=== PATIENT | male | born 1955 | race American Indian/Alaskan Native ===

== ENCOUNTER 2019-04-22 04:37 | Emergency (ER) | payer MEDICAID ==
[2019-04-22 05:33] LABS: Basophils % (Auto) 0.2 % (0.0-1.8); Eosinophils # (Auto) 0.1 K/mm3 (0.0-0.4); Eosinophils % (Auto) 1.6 % (0.0-4.3); Hematocrit 31.4 % (35.5-45.6); Hemoglobin 10.3 gm/dl (11.8-15.2); Lymphocytes # (Auto) 0.6 K/mm3 (1.2-5.4); Lymphocytes % (Auto) 9.3 % (13.4-35.0); Mean Corpuscular HGB Conc 33 % (32-34); Mean Corpuscular Volume 74 fl (84-94); Monocytes # (Auto) 0.9 K/mm3 (0.0-0.8); Monocytes % (Auto) 13.4 % (0.0-7.3); Platelet Count 278 K/mm3 (140-440); Red Blood Count 4.26 M/mm3 (3.65-5.03); Red Cell Distribution Width 15.7 % (13.2-15.2)
[2019-04-22 05:44] LABS: INR 1.01 (0.87-1.13)
[2019-04-22 05:58] LABS: Alanine Aminotransferase 19 units/L (7-56); BUN/Creatinine Ratio 11; Blood Urea Nitrogen 12 mg/dL (9-20); Calcium 8.8 mg/dL (8.4-10.2); Hemolysis Index 0
[2019-04-22 06:00] LABS: Bilirubin,Direct < 0.2 mg/dL (0-0.2)
[2019-04-22] MEDS ORDERED: ONDANSETRON 4 MG/2 ML INJ IV ONE (06:11)
[2019-04-22] MEDS ORDERED: SODIUM CHLORIDE 0.9% 1000 ML 1,000 ML IV ONE (06:16)
[2019-04-22 06:21] LABS: Bilirubin,Urine NEG (Negative); Blood,Urine NEG (Negative); Color,Urine Colorless (Yellow); Protein,Urine <15 mg/dL mg/dL (Negative); RBC,Urine < 1.0 /HPF (0.0-6.0); Urobilinogen,Urine < 2.0 mg/dL (<2.0); WBC,Urine < 1.0 /HPF (0.0-6.0)
--- NOTE | 2019-04-22 06:33 | Emergency Department Report ---
HPI - General Chief Complaint: Abdominal Pain Time Seen by Provider: 04/22/19 06:00 - HPI HPI: 64-year-old -[place] male presents to the emergency department with complaint of a three-day history of periumbilical abdominal pain, nausea, vomiting and diarrhea. He has a history of COPD, acid reflux, hypertension and a history of stomach surgery to remove ulcers that he says were not cancerous. He has taken his normal medications but has not taken anything else for his symptoms prior to arrival. He has a primary care physician but cannot currently remember their name. No recent travel or sick contacts at home. ED Past Medical Hx - Past Medical History Previous Medical History?: Yes Hx Hypertension: Yes Hx GERD: Yes Hx COPD: Yes - Surgical History Past Surgical History?: Yes Additional Surgical History: stomach surgery - Social History Smoking Status: Current Every Day Smoker Substance Use Type: None - Medications Home Medications: Home Medications Medication Instructions Recorded Confirmed Last Taken Type Ondansetron [Zofran Odt] 4 mg PO Q8HR PRN #15 tab.rapdis 04/22/19 Unknown Rx ED Review of Systems ROS: Stated complaint: ABD PAIN/EMESIS/DIARRHEA Other details as noted in HPI Comment: All other systems reviewed and negative Constitutional: denies: chills, fever Eyes: denies: eye pain, vision change ENT: denies: ear pain, throat pain Respiratory: denies: cough, shortness of breath Cardiovascular: denies: chest pain, palpitations Gastrointestinal: abdominal pain, nausea, vomiting, diarrhea Genitourinary: denies: dysuria, discharge Musculoskeletal: denies: back pain, arthralgia Skin: denies: rash, lesions Neurological: denies: headache, weakness Physical Exam - Physical Exam Vital Signs: Vital Signs 04/22/19 04/22/19 04:50 04:53 Temperature 97.7 F Pulse Rate 64 Respiratory 17 Rate Blood Pressure 127/74 Blood Pressure 127/74 [Left] O2 Sat by Pulse 99 84 Oximetry Physical Exam: GENERAL: The patient is well-developed well-nourished. HEENT: Normocephalic. Atraumatic. Patient has moist mucous membranes. EYES: Extraocular motions are intact. NECK: Supple. Trachea is midline. CHEST/LUNGS: Clear to auscultation. There is no respiratory distress noted. HEART/CARDIOVASCULAR: Regular. There is no tachycardia. There is no murmur. ABDOMEN: Abdomen is soft. Mild reproducible periumbilical tenderness to palpation. No guarding. Patient has normal bowel sounds. There is no abdominal distention. SKIN:Skin is warm and dry. . NEURO: The patient is awake, alert, and oriented. The patient is cooperative. The patient has no focal neurologic deficits. Normal speech. MUSCULOSKELETAL: There is no tenderness or deformity. There is no evidence of acute injury. ED Course Vital Signs 04/22/19 04/22/19 04:50 04:53 Temperature 97.7 F Pulse Rate 64 Respiratory 17 Rate Blood Pressure 127/74 Blood Pressure 127/74 [Left] O2 Sat by Pulse 99 84 Oximetry ED Medical Decision Making - Lab Data Result diagrams: 04/22/19 05:07 04/22/19 05:07 - Radiology Data Radiology results: report reviewed CT ABDOMEN AND PELVIS WITH CONTRAST HISTORY: Abd pain COMPARISON: None TECHNIQUE: Routine abdominal and pelvic CT exam performed following intravenous contrast administration. Note: All CT scans at this location are performed using CT dose reduction employed for ALARA by means of automated exposure control. CONTRAST: 100 mL Omnipaque 300. Consent was obtained prior to the administration of contrast. FINDINGS: CT ABDOMEN: Lung Bases: Clear. Liver: Borderline enlarged with normal overall density. No liver mass. Biliary: Normal gallbladder. Mild prominence of the intrahepatic bile ducts. Spleen: No significant abnormality. Unenlarged. Pancreas: Prominent prominent pancreatic duct. The pancreas is otherwise unremarkable. Adrenals: No significant abnormality. Kidneys: No significant abnormality. Renal collecting systems and ureters are nondilated. Left benign renal cysts with the largest in the lower pole measuring 2.9 cm. Lymphatics: No lymphadenopathy. Vasculature: No significant abnormality. Bowel/Peritoneum: No significant abnormality. No obstruction. No free air. No free fluid. No appendix identified. However, a normal anastomosis of the proximal ascending colon. CT PELVIC: : No significant abnormality. Osseous Structures: No significant abnormality. Additional Findings: None IMPRESSION: 1. Borderline large liver. 2. Mild prominence of the bile ducts and proximal pancreatic duct. 3. Postoperative changes in the right colon. - Medical Decision Making This patient presents with a 3 day history of some nausea vomiting and some periumbilical abdominal pain. His labs have been unremarkable including CBC, metabolic panel and urinalysis. CT scan of the abdomen and pelvis with IV contrast shows some borderline enlarged liver, some prominence of the bile ducts and proximal pancreatic duct without any solid organ changes or obvious acute process found. His vital signs stable throughout his ED course. There has been no further nausea or vomiting while in the emergency department and in fact the patient is asking for something to eat and drink. He appears safe for discharge home at this time and has been given a referral for gastroenterology. He will return to the ER with any worsening of his symptoms or any acute distress. - Differential Diagnosis bowel obstruction, colitis, diverticulitis, constipation Critical Care Time: No Critical care attestation.: If time is entered above; I have spent that time in minutes in the direct care of this critically ill patient, excluding procedure time. ED Disposition Clinical Impression: Abdominal pain Qualifiers: Abdominal location: periumbilical Qualified Code(s): R10.33 - Periumbilical pain Nausea & vomiting Qualifiers: Vomiting type: unspecified Vomiting Intractability: non-intractable Qualified Code(s): R11.2 - Nausea with vomiting, unspecified Disposition: TO HOME OR SELFCARE Is pt being admited?: No Condition: Stable Instructions: Acute Nausea and Vomiting (ED), Abdominal Pain (ED) Additional Instructions: Please follow up with your primary care physician in the next few days. I have also given you a referral for a local gastroenterology group to follow up regarding your abdominal pains. Return to the emergency Department with any worsening of your symptoms or any acute distress. Prescriptions: Ondansetron [Zofran Odt] 4 mg PO Q8HR PRN #15 tab.rapdis PRN Reason: Nausea Referrals: [facility] [Provider Group] - 2-3 Days PCP, Your [Other] - 2-3 Days Time of Disposition: 09:17
--- NOTE | 2019-04-22 09:11 | Cat Scan Report ---
CT ABDOMEN AND PELVIS WITH CONTRAST HISTORY: Abd pain COMPARISON: None TECHNIQUE: Routine abdominal and pelvic CT exam performed following intravenous contrast administrat ion. Note: All CT scans at this location are performed using CT dose reduction employed for ALARA by means of automated exposure control. CONTRAST: 100 mL Omnipaque 300. Consent was obtained prior to the administration of contrast. FINDINGS: CT ABDOMEN: Lung Bases: Clear. Liver: Borderline enlarged with normal overall density. No liver mass. Biliary: Normal gallbladder. Mild prominence of the intrahepatic bile ducts. Spleen: No significant a bnormality. Unenlarged. Pancreas: Prominent prominent pancreatic duct. The pancreas is otherwise unremarkable. Adrenals: No significant abnormality. Kidneys: No significant abnormality. Renal collecting systems and ureters are nondilated. Left benign renal cysts with the largest in the lower pole measuring 2.9 cm. Lymphatics: No lymphadenopathy. Vasculature: No significant abnormality. Bowel/Peritoneum: No significant abnormality. No obstruction. No free air. No free fluid. No appendix identified. However, a normal anastomosis of the proximal ascending colon. CT PELVIC: : No significant abnormality. Osseous Structures: No significant abnormality. Additional Findings: None IMPRESSION: 1. Borderline large liver. 2. Mild prominence of the bile ducts and proximal pancreatic duct. 3. Postoperative changes in the right colon. Signer Name: Will Aldridge MD Signed: 04/22/2019 9:07 AM Workstation Name: [id number]
[2019-04-22 09:49] VITALS: BP 120/76
== END 2019-04-22 09:00 | disposition home or self-care (01) ==
LOC: ED 04:37
DX: R10.33 Periumbilical pain (principal); R11.2 Nausea with vomiting, unspecified; I10 Essential (primary) hypertension; K21.9 Gastro-esophageal reflux disease without esophagitis; J44.9 Chronic obstructive pulmonary disease, unspecified; F17.200 Nicotine dependence, unspecified, uncomplicated; Z98.890 Other specified postprocedural states; Z79.899 Other long term (current) drug therapy
CPT/HCPCS: 36415; 74177; 80048; 80076; 81001; 83690; 85025; 85610; 96361; 96374; 99284; J2405; J7030; Q9967

== ENCOUNTER 2019-07-18 22:55 | Observation (INO) | payer MEDICAID ==
[2019-07-18] MEDS ORDERED: ALBUTEROL 2.5 MG/3 ML NEBU IH ONE (23:04)
[2019-07-18] MEDS ORDERED: methylPREDNISolone Sod Succinate 125 MG/2 ML INJ IV ONE (23:04)
[2019-07-18] MEDS ORDERED: IPRATROPIUM 0.02% NEBU 2.5 ML IH ONE (23:04)
[2019-07-18] MEDS ORDERED: MAGNESIUM SULFATE 2 GM/50 ML BAG IV ONE (23:04)
--- NOTE | 2019-07-18 23:12 | Emergency Department Report ---
HPI - General Time Seen by Provider: 07/18/19 22:58 - HPI HPI: Room 8 The patient is a 64-year-old male present with a chief complaint of shortness of breath. The patient states for the past 2 to 3 days he has had a cough productive of young sputum. Patient admits to rhinorrhea but denies fever. The patient states since yesterday he has had worsening shortness of breath. P atient states over the past 4 hours he developed wheezing with his shortness of breath. Patient states it feels like an asthma attack. Patient denies any known sick contacts. Patient complains of chest pain stating he feels as though someone is standing on his chest ED Past Medical Hx - Past Medical History Hx Hypertension: Yes Hx GERD: Yes Hx COPD: Yes - Surgical History Additional Surgical History: Colonic polyp removal - Family History Family history: no significant - Social History Smoking Status: Current Every Day Smoker (1/3 pack/day) Substance Use Type: None, Cocaine (Crack cocaine use) - Medications Home Medications: Home Medications Medication Instructions Recorded Confirmed Last Taken Type Ondansetron [Zofran Odt] 4 mg PO Q8HR PRN #15 tab.rapdis 04/22/19 Unknown Rx ED Review of Systems ROS: Stated complaint: ABDIEL Other details as noted in HPI Constitutional: denies: fever Eyes: denies: eye pain ENT: denies: throat pain Respiratory: cough, shortness of breath Cardiovascular: denies: chest pain Endocrine: no symptoms reported Gastrointestinal: denies: abdominal pain Genitourinary: denies: dysuria Musculoskeletal: denies: back pain Neurological: denies: headache Physical Exam - Physical Exam Physical Exam: GENERAL: The patient is well-developed well-nourished male sitting on stretcher appearing to have slightly increased work of breathing HEENT: Normocephalic. Atraumatic. Extraocular motions are intact. Patient has moist mucous membranes. NECK: Supple. Trachea midline CHEST/LUNGS: Diffuse wheezing. Increased work of breathing HEART/CARDIOVASCULAR: Regular. There is no tachycardia. There is no gallop rub or murmur. ABDOMEN: Abdomen is soft, nontender. Patient has normal bowel sounds. There is no abdominal distention. SKIN: There is no rash. There is no edema. There is no diaphoresis. NEURO: The patient is awake, alert, and oriented. The patient is cooperative. The patient has normal speech MUSCULOSKELETAL: There is no evidence of acute injury. ED Course - Consultations Consultation #1: 07/19/19 00:14 EKG sent to and discussed with Dr. Butler- "the EKG is fine." no STEMI ED Medical Decision Making - Lab Data Result diagrams: 07/19/19 00:14 07/19/19 00:14 Laboratory Tests 07/18/19 07/19/19 07/19/19 23:40 00:14 00:14 WBC 4.8 RBC 4.23 Hgb 9.9 L Hct 31.3 L MCV 74 L MCH 24 L MCHC 32 RDW 15.9 H Plt Count 289 Lymph % (Auto) Barrel Builder [place] % (Auto) Barrel Builder Eos % (Auto) Barrel Builder Baso % (Auto) Barrel Builder Lymph # Barrel Builder [place] # Barrel Builder Eos # Barrel Builder Baso # Barrel Builder Seg Neutrophils % Barrel Builder Seg Neutrophils # Barrel Builder Sodium 130 L Potassium 4.6 Chloride 98.2 Carbon Dioxide 22 Anion Gap 14 BUN 10 Creatinine 0.9 Estimated GFR > 60 BUN/Creatinine Ratio 11 Glucose 81 Calcium 9.0 Total Creatine Kinase 445 H CK-MB (CK-2) 8.5 H CK-MB (CK-2) Rel Index 1.9 Troponin T < 0.010 NT-Pro-B Natriuret Pep 503.5 Influenza A (Rapid) Negative Influenza B (Rapid) Negative - EKG Data -: EKG Interpreted by Me EKG shows normal: sinus rhythm Rate: normal - EKG Data When compared to previous EKG there are: previous EKG unavailable Interpretation: nonspecific ST-T wave edwina - Radiology Data Radiology results: report reviewed (Chest x-ray), image reviewed (Chest x-ray) interpreted by me: Chest x-ray-no focal infiltrates, no pneumothorax [facility] [address] [place] [address] XRay Report Signed Patient: LIDA VILLALBA MR#: [id number] : 1955 Acct:[id number] Age/Sex: 64 / M ADM Date: 07/18/19 Loc: ED Attending Dr: Ordering Physician: DELMAR QUESADA MD Date of Service: 07/18/19 Procedure(s): XR chest 1V ap Accession Number(s): [id number] cc: DELMAR QUESADA MD Fluoro Time In Minutes: CHEST 1 VIEW 11:48 PM INDICATION / CLINICAL INFORMATION: MAIN: Shortness of breath; hx asthma, copd. COMPARISON: None available. FINDINGS: SUPPORT DEVICES: None. HEART / MEDIASTINUM: No significant abnormality. LUNGS / PLEURA: Lungs are slightly hyperinflated. Biapical subpleural scarring. No acute airspace disease. No pneumothorax. ADDITIONAL FINDINGS: No significant additional findings. IMPRESSION: 1. COPD but no acute findings. Signer Name: Kamryn Hopkins MD Signed: 07/19/2019 12:25 AM Workstation Name: [id number] Transcribed By: DT Dictated By: Giacomo Hopkins MD Electronically Authenticated By: Giacomo Hopkins MD Signed Date/Time: 07/19/1924 DD/ TD/TT: - Differential Diagnosis COPD exacerbation, pneumonia, bronchitis Critical care attestation.: If time is entered above; I have spent that time in minutes in the direct care of this critically ill patient, excluding procedure time. ED Disposition Clinical Impression: Shortness of breath, Chest pain, COPD exacerbation, Cocaine abuse Disposition: 09 OP ADMIT IP TO THIS HOSP Is pt being admited?: Yes Does the pt Need Aspirin: Yes Condition: Fair Instructions: Chest Pain (ED), Chronic Obstructive Pulmonary Disease (ED) Referrals: CHRISTIANA GRANDE MD [Primary Care Provider] - 3-5 Days Time of Disposition: 01:43 (Hospitalist paged (Dr. La Singh))
--- NOTE | 2019-07-19 00:30 | XRay Report ---
CHEST 1 VIEW 11:48 PM INDICATION / CLINICAL INFORMATION: MAIN: Shortness of breath; hx asthma, copd. COMPARISON: None available. FINDINGS: SUPPORT DEVICES: None. HEART / MEDIASTINUM: No significant abnormality. LUNGS / PLEURA: Lungs are slightly hyperinflated. Biapical subpleural scarring. No acute airspace dis ease. No pneumothorax. ADDITIONAL FINDINGS: No significant additional findings. IMPRESSION: 1. COPD but no acute findings. Signer Name: Kamryn Hopkins MD Signed: 07/19/2019 12:25 AM Workstation Name: [id number]
[2019-07-19] MEDS ORDERED: fentaNYL 100 MCG/2 ML INJ IV ONE (00:33)
[2019-07-19] MEDS ORDERED: ONDANSETRON 4 MG/2 ML INJ IV ONE (00:33)
[2019-07-19] MEDS ORDERED: NITROGLYCERIN 2% OINT 1 GM TP ONE (00:33)
[2019-07-19] MEDS ORDERED: ASPIRIN 325 MG TAB PO ONE (00:34)
[2019-07-19 01:12] LABS: Hematocrit 31.3 % (35.5-45.6); Hemoglobin 9.9 gm/dl (11.8-15.2); Mean Corpuscular HGB Conc 32 % (32-34); Mean Corpuscular Volume 74 fl (84-94); Platelet Count 289 K/mm3 (140-440); Red Blood Count 4.23 M/mm3 (3.65-5.03); Red Cell Distribution Width 15.9 % (13.2-15.2)
[2019-07-19 01:13] LABS: Creatine Kinase MB 8.5 ng/mL (0.0-4.0)
[2019-07-19 01:17] LABS: BUN/Creatinine Ratio 11; Blood Urea Nitrogen 10 mg/dL (9-20); Hemolysis Index 114
[2019-07-19] MEDS ORDERED: LORazepam 2 MG/ML VIAL IV ONE (01:30)
[2019-07-19] MEDS ORDERED: ACETAMINOPHEN 325 MG TAB PO PRN ×2 (03:05→03:09)
[2019-07-19] MEDS ORDERED: ONDANSETRON 4 MG/2 ML INJ IV PRN ×2 (03:05→03:09)
[2019-07-19] MEDS ORDERED: oxyCODONE /ACETAMINOPHEN 5-325MG TAB PO PRN (03:09)
--- NOTE | 2019-07-19 03:16 | History and Physical Report ---
History of Present Illness History of present illness: 64-year-old man with a history of COPD, asthma, hypertension, substance abuse comes emergency room with complaints of shortness of breath over the last 4 days. Patient states that he ran out of his inhalers at home, symptoms worsened today so he comes emergency room for evaluation. Also complaining of a cough productive of green phlegm. He currently had chest pain which she states feels like someone standing on his chest, intermittent every 30 to 40 minutes, intensity 5/10, no radiation, cannot identify exacerbating factor. His last use of crack cocaine was on Friday. Patient will be admitted for COPD exacerbation, chest pain Review Of Systems: Constitutional: no weight loss, fever, chills Ears, eyes, nose, mouth and throat: no nasal congestion, no nasal discharge, no sinus pressure, blurry vision, diplopia Neck: No neck pain or rigidity. Cardiovascular: No palpitations, chest pain Respiratory: + shortness of breath, cough Gastrointestinal: No hematochezia Genitourinary : no dysuria, frequency Musculoskeletal: no muscle ache , joint pain Integumentary: no rash, no pruritis Neurological: no parathesias, focal weakness Endocrine: no cold or heat intolerance, no polyuria or polydipsia Hematologic/Lymphatic: no easy bruising, no easy bleeding, no gland swelling Allergic/Immunologic: no urticaria, no angioedema. PAST MEDICAL HISTORY: COPD, asthma, hypertension, substance abuse PAST SURGICAL HISTORY: Polyps removed from colon SOCIAL HISTORY: Denies alcohol, smokes 1/3 pack a day, crack cocaine use FAMILY HISTORY: Hypertension PUI?: No Medications and Allergies Allergies Allergy/AdvReac Type Severity Reaction Status Date / Time No Known Allergies Allergy Verified 07/19/19 03:09 Home Medications Medication Instructions Recorded Confirmed Last Taken Type Ondansetron [Zofran Odt] 4 mg PO Q8HR PRN #15 tab.rapdis 04/22/19 Unknown Rx Active Meds: Active Medications Acetaminophen (Tylenol) 650 mg PO Q4H PRN PRN Reason: Pain MILD(1-3)/Fever >100.5/PRATT Acetaminophen (Tylenol) 650 mg PO Q4H PRN PRN Reason: Pain MILD(1-3)/Fever >100.5/PRATT Albuterol/Ipratropium (Duoneb *Not For Prn Use*) 1 ampul IH Q6HRT APRIL Enoxaparin Sodium (Enoxaparin) 30 mg SUB-Q QDAY APRIL Methylprednisolone Sodium Succinate (Solu-Medrol) 125 mg IV Q6HR APRIL Ondansetron HCl (Zofran) 4 mg IV Q8H PRN PRN Reason: Nausea And Vomiting Ondansetron HCl (Zofran) 4 mg IV Q8H PRN PRN Reason: Nausea And Vomiting Oxycodone/Acetaminophen (Percocet 5/325) 1 tab PO Q6H PRN PRN Reason: Pain, Moderate (4-6) Sodium Chloride (Sodium Chloride Flush Syringe 10 Ml) 10 ml IV BID APRIL Sodium Chloride (Sodium Chloride Flush Syringe 10 Ml) 10 ml IV PRN PRN PRN Reason: LINE FLUSH Sodium Chloride (Sodium Chloride Flush Syringe 10 Ml) 10 ml IV BID APRIL Sodium Chloride (Sodium Chloride Flush Syringe 10 Ml) 10 ml IV PRN PRN PRN Reason: LINE FLUSH Exam - Physical Exam Narrative exam: Gen. appearance: Patient lying in bed, no apparent distress HEENT: Normocephalic, atraumatic, pupils equally round and reactive to light, extraocular movement intact, and no sclericterus,. No JVD or thyromegaly or nodule,neck supple, no carotid bruit ,mucous membranes moist, no exudate or erythema Heart: S1, S2, regular rate and rhythm Lungs: Wheezing bilaterally, breathing comfortable Abdomen: Positive bowel sounds, nontender, nondistended, no organomegaly Extremity: no edema, cyanosis, clubbing Skin: No rash, nodules, warm, dry Neuro: Cranial nerves II to XII intact, speech is fluent, moves extremities, sensory intact - Constitutional Vitals: Temp Pulse Resp BP Pulse Ox 97.4 F L 97 H 44 H 166/97 97 07/18/19 23:30 07/19/19 01:19 07/19/19 01:19 07/19/19 02:31 07/19/19 02:45 Results - Labs CBC & Chem 7: 07/19/19 00:14 07/19/19 00:14 Labs: Abnormal lab results 07/19/19 07/19/19 Range/Units 00:14 00:14 Hgb 9.9 L (11.8-15.2) gm/dl Hct 31.3 L (35.5-45.6) % MCV 74 L (84-94) fl MCH 24 L (28-32) pg RDW 15.9 H (13.2-15.2) % Sodium 130 L (137-145) mmol/L Total Creatine Kinase 445 H (55-170) units/L CK-MB (CK-2) 8.5 H (0.0-4.0) ng/mL - Imaging and Cardiology EKG: image reviewed Chest x-ray: report reviewed Assessment and Plan Assessment COPD exacerbation Start high-dose steroids, nebulizer treatments Start azithromycin Chest pain Check cardiac enzymes, consult cardiology stress test once respiratory status improved DVT prophylaxis, Percocet for pain
[2019-07-19 05:29] LABS: Hematocrit 32.5 % (35.5-45.6); Hemoglobin 10.2 gm/dl (11.8-15.2); Red Blood Count 4.41 M/mm3 (3.65-5.03)
[2019-07-19 05:30] LABS: Mean Corpuscular Volume 74 fl (84-94)
[2019-07-19 05:31] LABS: Basophils % (Auto) 0.5 % (0.0-1.8); Eosinophils % (Auto) 0.8 % (0.0-4.3); Lymphocytes # (Auto) 0.3 K/mm3 (1.2-5.4); Lymphocytes % (Auto) 8.3 % (13.4-35.0); Mean Corpuscular HGB Conc 32 % (32-34); Monocytes # (Auto) 0.1 K/mm3 (0.0-0.8); Monocytes % (Auto) 2.6 % (0.0-7.3); Platelet Count 296 K/mm3 (140-440)
[2019-07-19] MEDS ORDERED: methylPREDNISolone Sod Succinate 125 MG/2 ML INJ ONE (05:53)
[2019-07-19] MEDS: methylPREDNISolone Sod Succinate 125 MG/2 ML INJ IV SCH ×3 (05:56→17:53)
[2019-07-19 06:17] LABS: Creatine Kinase MB 8.7 ng/mL (0.0-4.0)
[2019-07-19 06:24] LABS: BUN/Creatinine Ratio 10; Blood Urea Nitrogen 9 mg/dL (9-20)
[2019-07-19 06:25] LABS: Calcium 9.4 mg/dL (8.4-10.2); Hemolysis Index 8
[2019-07-19] MEDS ORDERED: IPRATROPIUM/ALBUTEROL SULFATE 3 ML AMPUL.NEB IH SCH (08:00)
[2019-07-19] MEDS ORDERED: ENOXAPARIN 30 MG/0.3 ML INJ SUB-Q SCH (10:00)
[2019-07-19] MEDS: ENOXAPARIN 40 MG/0.4 ML INJ SUB-Q SCH ×2 (10:20→10:24)
[2019-07-19] MEDS: PANTOPRAZOLE 40 MG INJ IV SCH (10:42)
--- NOTE | 2019-07-19 11:14 | Consultation ---
History of Present Illness Consult date: 07/19/19 Requesting physician: ALEXANDRO RAI Consult reason: chest pain History of present illness: The patient is a 64-year-old male with a past medical history of COPD, asthma, hypertension, crack cocaine abuse, tobacco use. He is previously unknown to our practice. He presented with c/o progressively worsenin shortness of breath, wheezing and a cough productive of young sputum over the last 4 days. Patient states that he ran out of his inhalers at home, symptoms worsened yesterday so he presented to ED for evaluation. Following admission, he developed chest pain which he describes as a midsternal aching pain which is aggravated by deep breathing and coughing. Pt admits to ongoing crack cocaine use - he last smoked crack cocaine on Friday. On evaluation, pt is noted to be nauseous dry heaving. Past History Past Medical History: other (as per HPI) Medications and Allergies Allergies Allergy/AdvReac Type Severity Reaction Status Date / Time No Known Allergies Allergy Verified 07/19/19 03:09 Home Medications Medication Instructions Recorded Confirmed Last Taken Type Ondansetron [Zofran Odt] 4 mg PO Q8HR PRN #15 tab.rapdis 04/22/19 Unknown Rx Active Meds: Active Medications Acetaminophen (Tylenol) 650 mg PO Q4H PRN PRN Reason: Pain MILD(1-3)/Fever >100.5/PRATT Albuterol/Ipratropium (Duoneb *Not For Prn Use*) 1 ampul IH TIDRT [facility] Enoxaparin Sodium (Enoxaparin) 40 mg SUB-Q QDAY@1000 [facility] Last Admin: 07/19/19 10:24 Dose: Not Given Documented by: Methylprednisolone Sodium Succinate (Solu-Medrol) 125 mg IV Q6HR [facility] Last Admin: 07/19/19 05:56 Dose: 125 mg Documented by: Ondansetron HCl (Zofran) 4 mg IV Q8H PRN PRN Reason: Nausea And Vomiting Last Admin: 07/19/19 10:20 Dose: 4 mg Documented by: Oxycodone/Acetaminophen (Percocet 5/325) 1 tab PO Q6H PRN PRN Reason: Pain, Moderate (4-6) Last Admin: 07/19/19 10:20 Dose: 1 tab Documented by: Pantoprazole Sodium (Protonix) 40 mg IV QDAY [facility] Last Admin: 07/19/19 10:42 Dose: 40 mg Documented by: Sodium Chloride (Sodium Chloride Flush Syringe 10 Ml) 10 ml IV BID [facility] Last Admin: 07/19/19 10:43 Dose: 10 ml Documented by: Sodium Chloride (Sodium Chloride Flush Syringe 10 Ml) 10 ml IV PRN PRN PRN Reason: LINE FLUSH Review of Systems Constitutional: no weight loss, no weight gain, no fever, no chills, no sweats Ears, nose, mouth and throat: no ear pain, no nose pain, no sinus pressure, no sinus pain Cardiovascular: chest pain, shortness of breath, dyspnea on exertion, no orthopnea, no palpitations, no rapid/irregular heart beat, no edema, no syncope, no lightheadedness Respiratory: cough with sputum, shortness of breath, dyspnea on exertion, w heezing, pain on inspiration, no congestion Gastrointestinal: nausea, no abdominal pain, no diarrhea, no constipation, no change in bowel habits Genitourinary Male: no dysuria, no hematuria, no flank pain, no discharge, no urinary frequency, no urinary hesitancy Musculoskeletal: no neck stiffness, no neck pain, no shooting arm pain, no arm numbness/tingling, no low back pain, no shooting leg pain Integumentary: no rash, no pruritis, no redness, no sores, no wounds Neurological: no head injury, no paralysis, no weakness, no parathesias, no numbness, no tingling, no seizures, no syncope Psychiatric: no anxiety Endocrine: no cold intolerance, no heat intolerance Hematologic/Lymphatic: no easy bruising, no easy bleeding Allergic/Immunologic: no urticaria Physical Examination Vital Signs Pulse Resp 62 20 07/18/19 23:20 07/18/19 23:20 General appearance: other (nausea) HEENT: Positive: PERRL, Normocephaly, Mucus Membranes Moist Neck: Positive: neck supple, trachea midline Cardiac: Positive: Reg Rate and Rhythm, S1/S2 Lungs: Positive: Decreased Breath Sounds Neuro: Positive: Grossly Intact Abdomen: Negative: Tender Skin: Negative: Rash Musculoskeletal: No Pain Extremities: Absent: edema Results 07/19/19 03:50 07/19/19 03:50 Cardiac Enzymes 07/19/19 07/19/19 Range/Units 00:14 03:50 CK-MB (CK-2) 8.5 H 8.7 H (0.0-4.0) ng/mL CBC 07/19/19 07/19/19 Range/Units 00:14 03:50 WBC 4.8 3.0 L (4.5-11.0) K/mm3 RBC 4.23 4.41 (3.65-5.03) M/mm3 Hgb 9.9 L 10.2 L (11.8-15.2) gm/dl Hct 31.3 L 32.5 L (35.5-45.6) % Plt Count 289 296 (140-440) K/mm3 Lymph # Grinding Operator 0.3 L Glades # Grinding Operator 0.1 Eos # Grinding Operator 0.0 Baso # Grinding Operator 0.0 Comprehensive Metabolic Panel 07/19/19 07/19/19 Range/Units 00:14 03:50 Sodium 130 L 132 L (137-145) mmol/L Potassium 4.6 4.1 (3.6-5.0) mmol/L Chloride 98.2 98.3 (98-107) mmol/L Carbon Dioxide 22 23 (22-30) mmol/L BUN 10 9 (9-20) mg/dL Creatinine 0.9 0.9 (0.8-1.5) mg/dL Glucose 81 94 (75-100) mg/dL Calcium 9.0 9.4 (8.4-10.2) mg/dL - Imaging and Cardiology Echo: pending EKG: report reviewed, image reviewed EKG interpretations - Telemetry EKG Rhythm: Sinus Rhythm - EKG Sinus rhythms and dysrhythmias: sinus rhythm Assessment and Plan AMI r/o. Chest pain appears pleuritic in etiology. Cont present cardiac manageme nt. Obtain echo. Plan for lexiscan MPI stress in AM. NPO after MN. The patient has been seen in conjunction with Dr. Krishnan who agrees with the assessment and plan of care. - Patient Problems (1) COPD exacerbation Current Visit: Yes Status: Acute (2) Chest pain Current Visit: Yes Status: Acute (3) Cocaine abuse Current Visit: Yes Status: Chronic (4) Tobacco use Current Visit: Yes Status: Chronic
[2019-07-19 11:35] LABS: Creatine Kinase MB 8.1 ng/mL (0.0-4.0)
[2019-07-19] MEDS: NICOTINE 21 MG/24 HR PATCH TD SCH (13:30)
[2019-07-19] MEDS: IPRATROPIUM/ALBUTEROL SULFATE 3 ML AMPUL.NEB IH SCH ×2 (13:56→21:34)
--- NOTE | 2019-07-19 15:44 | Event Note ---
Date: 07/19/19 Patient seen and examined, wheezing bilaterally, about to get meds, improved on reexamination, patient reports severe GERD and also reporting tobacco use with extensive counseling provided to him. He is planned for stress test in a.m.
[2019-07-20] MEDS: methylPREDNISolone Sod Succinate 125 MG/2 ML INJ IV SCH ×3 (00:20→11:05)
[2019-07-20 04:28] LABS: Hemoglobin 10.6 gm/dl (11.8-15.2); Mean Corpuscular HGB Conc 31 % (32-34); Mean Corpuscular Volume 73 fl (84-94); Platelet Count 344 K/mm3 (140-440); Red Blood Count 4.68 M/mm3 (3.65-5.03); Red Cell Distribution Width 16.5 % (13.2-15.2)
[2019-07-20 04:42] LABS: BUN/Creatinine Ratio 13; Blood Urea Nitrogen 15 mg/dL (9-20); Calcium 9.3 mg/dL (8.4-10.2); Hemolysis Index 22
[2019-07-20 05:19] LABS: Basophils % (Manual) 0 % (0.0-1.8); Eosinophils % (Manual) 0 % (0.0-4.3); Total Cells Counted 100
[2019-07-20 05:20] LABS: Hypochromasia 1+
[2019-07-20 05:22] LABS: Platelet Estimate Consistent w Auto; Schistocytes Few; Tear Drop Cells Rare
[2019-07-20] MEDS ORDERED: REGADENOSON 0.4 MG/5 ML INJ IV ONE ×2 (08:41→08:42)
[2019-07-20] MEDS: IPRATROPIUM/ALBUTEROL SULFATE 3 ML AMPUL.NEB IH SCH (09:37)
--- NOTE | 2019-07-20 09:37 | Progress Note ---
<JERSEY MCLAUGHLIN FELICIA - Last Filed: 07/20/19 09:35> Assessment and Plan AMI r/o. Chest pain appears pleuritic in etiology. Cont present cardiac management. tte reviewed - EF 60-65%, no significant abnormalities. Proceed with lexiscan MPI stress test. Await findings. The patient has been seen in conjunction with Dr. Krishnan who agrees with the assessment and plan of care. - Patient Problems (1) COPD exacerbation Current Visit: Yes Status: Acute (2) Chest pain Current Visit: Yes Status: Acute (3) Cocaine abuse Current Visit: Yes Status: Chronic (4) Tobacco use Current Visit: Yes Status: Chronic Subjective Date of service: 07/20/19 Principal diagnosis: cp; copd exac Interval history: pt for stress test, no current complaints. PUI?: No Objective Last Vital Signs Temp 97.9 F 07/20/19 03:32 Pulse 66 07/20/19 09:32 Resp 16 07/20/19 09:32 BP 167/98 07/20/19 03:32 Pulse Ox 98 07/20/19 03:32 - Physical Examination General: No Apparent Distress HEENT: Positive: PERRL, Normocephaly, Mucus Membranes Moist Neck: Positive: neck supple, trachea midline Cardiac: Positive: Reg Rate and Rhythm, S1/S2 Lungs: Positive: Decreased Breath Sounds Neuro: Positive: Grossly Intact Abdomen: Negative: Tender Skin: Negative: Rash Musculoskeletal: No Pain Extremities: Absent: edema - Labs and Meds Cardiac Enzymes 07/19/19 Range/Units 08:54 CK-MB (CK-2) 8.1 H (0.0-4.0) ng/mL CBC 07/20/19 Range/Units 03:52 WBC 6.4 (4.5-11.0) K/mm3 RBC 4.68 (3.65-5.03) M/mm3 Hgb 10.6 L (11.8-15.2) gm/dl Hct 34.0 L (35.5-45.6) % Plt Count 344 (140-440) K/mm3 Comprehensive Metabolic Panel 07/20/19 Range/Units 03:52 Sodium 134 L (137-145) mmol/L Potassium 4.8 (3.6-5.0) mmol/L Chloride 95.4 L (98-107) mmol/L Carbon Dioxide 22 (22-30) mmol/L BUN 15 (9-20) mg/dL Creatinine 1.2 (0.8-1.5) mg/dL Glucose 115 H (75-100) mg/dL Calcium 9.3 (8.4-10.2) mg/dL - Imaging and Cardiology EKG: report reviewed, image reviewed Echo: pending - EKG Sinus rhythms and dysrhythmias: sinus rhythm <TYRA KRISHNAN R - Last Filed: 07/20/19 11:20> Assessment and Plan stress test no significant ischemia noted and normal lv function, cp is probably from copd and may discharge from [facility] point of view Objective Vital Signs Temp Pulse Pulse Resp Resp BP Pulse Ox 07/20/19 09:32 66 16 07/20/19 08:50 162/91 07/20/19 08:49 153/90 07/20/19 08:47 157/87 07/20/19 08:45 165/104 07/20/19 08:44 149/96 07/20/19 08:42 153/94 07/20/19 08:41 152/88 07/20/19 08:26 153/89 07/20/19 03:32 97.9 F 66 16 167/98 98 07/20/19 00:00 63 07/19/19 23:53 98.9 F 77 19 123/83 90 07/19/19 21:35 93 H 14 07/19/19 20:47 98.1 F 69 16 149/91 100 07/19/19 20:45 22 - Labs and Meds Cardiac Enzymes 07/19/19 Range/Units 08:54 CK-MB (CK-2) 8.1 H (0.0-4.0) ng/mL CBC 07/20/19 Range/Units 03:52 WBC 6.4 (4.5-11.0) K/mm3 RBC 4.68 (3.65-5.03) M/mm3 Hgb 10.6 L (11.8-15.2) gm/dl Hct 34.0 L (35.5-45.6) % Plt Count 344 (140-440) K/mm3 Comprehensive Metabolic Panel 07/20/19 Range/Units 03:52 Sodium 134 L (137-145) mmol/L Potassium 4.8 (3.6-5.0) mmol/L Chloride 95.4 L (98-107) mmol/L Carbon Dioxide 22 (22-30) mmol/L BUN 15 (9-20) mg/dL Creatinine 1.2 (0.8-1.5) mg/dL Glucose 115 H (75-100) mg/dL Calcium 9.3 (8.4-10.2) mg/dL
--- NOTE | 2019-07-20 09:51 | Discharge Summary ---
Providers - Providers Date of Admission: 07/19/19 03:05 Attending physician: ARTHUR GRANGER MD 07/19/19 03:17 Consult to Physician [CONS] Routine Comment: Consulting Provider: PAYAM AVILA Physician Instructions: Reason For Exam: cp/crack- cocaine use Primary care physician: [facility], Hospitalization Reason for admission: chest pain Condition: Stable Hospital course: 64-year-old man with a history of COPD, asthma, hypertension, substance abuse comes emergency room with complaints of shortness of breath over the last 4 days. Patient states that he ran out of his inhalers at home, symptoms worsened today so he comes emergency room for evaluation. Also complaining of a cough productive of green phlegm. He currently had chest pain which she states feels like someone standing on his chest, intermittent every 30 to 40 minutes, intensity 5/10, no radiation, cannot identify exacerbating factor. His last use of crack cocaine was on Friday. Patient will be admitted for COPD exacerbation, chest pain AMI r/o. Chest pain appears pleuritic in etiology. TTE reviewed - EF 60-65%, no significant abnormalities. Lexiscan MPI stress test with no evidence of ischemia Counseling on cocaine and tobacco for 15 mins Clinically the patient continues to improve, he states that he is homeless and case management will assist him (1) COPD exacerbation Current Visit: Yes Status: Acute (2) Chest pain Current Visit: Yes Status: Acute (3) Cocaine abuse Current Visit: Yes Status: Chronic (4) Tobacco use Current Visit: Yes Status: Chronic Disposition: DC-01 TO HOME OR SELFCARE Time spent for discharge: 35 mins Core Measure Documentation - Palliative Care Palliative Care/ Comfort Measures: Not Applicable - Core Measures Any of the following diagnoses?: none Exam - Physical Exam Narrative exam: General: No Apparent Distress HEENT: Positive: PERRL, Normocephaly, Mucus Membranes Moist Neck: Positive: neck supple, trachea midline Cardiac: Positive: Reg Rate and Rhythm, S1/S2 Lungs: Positive: Decreased Breath Sounds, cough Neuro: Positive: Grossly Intact Abdomen: Negative: Tender Skin: Negative: Rash Musculoskeletal: No Pain Extremities: Absent: edema - Constitutional Vitals: Temp Pulse Resp BP Pulse Ox 97.9 F 66 16 167/98 98 07/20/19 03:32 07/20/19 09:32 07/20/19 09:32 07/20/19 03:32 07/20/19 03:32 Plan Activity: advance as tolerated, fall precautions Diet: low fat Special Instructions: record daily weights, record daily BP diary, smoking cessation [facility] [Primary Care Provider[facility] - 3-5 Days IZABELLA RAMSEY MD [Staff Physician] - 7 Days RADHA CORONA MD [Staff Physician] - 7 Days Prescriptions: Fluticasone/Salmeterol [Advair Diskus 250-50 mcg] 1 puff IH BID #1 disk.w.dev Nicotine [Habitrol] 21 mg TD QDAY #7 patch methylPREDNISolone [Medrol 4MG DOSEPAK (21 tabs)] 4 mg PO . DIR #1 tab.ds.pk Pantoprazole Sodium [Protonix] 40 mg PO DAILY #30 granpkt. Ipratropium/Albuterol Sulfate [DUONEB *Not for PRN Use*] 1 ampul IH TIDRT #90 ampul.neb Other Discharge Orders: Nebulizer (Amb) Location: None Selected
--- NOTE | 2019-07-20 10:05 | Treadmill Report ---
NUCLEAR PERFUSION STUDY READING PHYSICIAN: Dr. Krishnan. REASON FOR STUDY: Chest pain. IMAGING PROTOCOL: The patient received 10 mCi of Technetium 99m Tetrofosmin for resting image and 28 mCi of Technetium 99m Tetrofosmin for stress imaging. The imaging for the whole procedure was completed 30-90 minutes following the initial injection of Technetium 99m Tetrofosmin. The SPECT imaging in the 180 degree arc was performed in the right anterior oblique projection. Computerized reconstruction of the images was performed for analysis. IMAGING RESULTS: Normal cavity size from stress to rest. Normal distribution of radionuclide in the anterior, inferior, septal, and apical regions. Gated SPECT, EF 58% with no wall motion abnormality. The patient infused Lexiscan with no EKG changes. SUMMARY: 1. Negative Lexiscan EKG. 2. Normal rest and stress myocardial perfusion scan. No significant ischemia. No wall motion abnormality. Gated SPECT, EF 58%. JOB# [id number] DOMINICK/SAMANTHA
[2019-07-20 10:15] VITALS: BP 162/91
[2019-07-20] MEDS: PANTOPRAZOLE 40 MG INJ IV SCH (11:05)
[2019-07-20] MEDS: ENOXAPARIN 40 MG/0.4 ML INJ SUB-Q SCH (11:06)
[2019-07-20] MEDS: NICOTINE 21 MG/24 HR PATCH TD SCH (11:06)
[2019-07-21] MEDS ORDERED: PANTOPRAZOLE 40 MG TAB PO SCH (10:00)
== END 2019-07-20 13:49 | disposition home or self-care (01) ==
LOC: ED 22:55 → UNDOADMOB 07-19 03:05 → 4A 07-19 03:05
PROVIDERS: ADMIT Internal Medicine; ATTEND Internal Medicine
DX: J44.1 Chronic obstructive pulmonary disease with (acute) exacerbation (principal); R07.89 Other chest pain; F14.10 Cocaine abuse, uncomplicated; J45.909 Unspecified asthma, uncomplicated; I10 Essential (primary) hypertension; K21.9 Gastro-esophageal reflux disease without esophagitis; F17.200 Nicotine dependence, unspecified, uncomplicated; Z98.890 Other specified postprocedural states
CPT/HCPCS: 36415; 71045; 78452; 80048; 82550; 82553; 83880; 84484; 85007; 85025; 87116; 87400; 93005; 93010; 93017; 93306; 94640; 94644; 96365; 96375; 96376; 99285; 99406; A9502; C9113; G0378; J2060; J2405; J2785; J2930; J3475; J1650